=== PATIENT | female | born 2000 | race Caucasian/White ===

== ENCOUNTER 2021-03-12 19:53 | Emergency (ER) | payer OTHER ==
[~2021-03-12] VITALS: Ht 170 cm; Wt 51.0 kg
--- OUTSIDE RECORDS SUMMARY | 2021-03-12 20:00 | XMS REPORT | Clinical Summary ---
Author Author [facility] Organization [facility] Address Unknown Phone Unavailable Care Team Providers Care Scientific Director Name Role Phone PCP Unavailable Source Comments Some departments are not documenting in the electronic medical record. If you d o not see the information that you expected, contact Release of Information in [facility] [employer] Information Management department at [phone] for further assistan ce in locating additional records.[facility] Allergies Not on File Medications Not on file Active Problems Not on file Social History Date Tobacco Use Types Packs/Day Years Used Never Assessed Sex Assigned at Date Recorded Not on file Last Filed Vital Signs Not on file Plan of Treatment Health Maintenance Due Date Last Done Comments CHLAMYDIA SCREENING 18-24 2000 YEARS HPV VACCINES (1 - 2-dose 08/13/2011 series) HIV SCREENING 08/13/2015 DTAP/TDAP VACCINES (1 - 2018 Tdap) HEPATITIS C SCREENING 2018 PHYSICAL (COMPREHENSIVE) 2018 EXAM INFLUENZA VACCINE 10/01/2020 MENINGOCOCCAL VACCINE Aged Out No longer eligib le based on patient's age to (Daniel ALEMAN) complete this topic Results Not on filefrom Last 3 Months Advance Directives Patient Web Consultant Explanation Type Date Recorded Advance Directive/DPOA
--- NOTE | 2021-03-12 21:03 | ED Cardiac General ---
History of Present Illness General Chief Complaint: Cardiac/General Problems Stated Complaint: HEART PALPITATIONS X 2 WKS Nursing Triage Note: PT AMB TO ED BY POV WITH C/O HEART PALPITATIONS X 3 WKS. PT REPORTS THE TESTED POSITIVE FOR COVID-19 3 WEEKS AGO AND BEGAN HAVING HEART PALPITATIONS WELL INCREASED ANXIETY. PT ALSO BEGAN TAKING LEXAPRO FOR ANXIETY AND REPORTS THAT HAS INCREASED HER HEART PALPITAITONS. REPORTS SHE HAS SEEN HER PCP ABOUT THIS AND IS WAITING TO HAVE AN ECHO SCHEDULED. DENIES CP, SOB, GOODWIN. Source: patient, family Exam Limitations: no limitations History of Present Illness Date Seen by Provider: Mar 12, 2021 Time Seen by Provider: 20:34 Initial Comments This 20-year-old young lady presents to the emergency room with 2 to 3 weeks of palpitations. This started after testing positive for COVID-19. She is also started on Lexapro recently. She denies any excessive stimulant use. She does drink caffeine but denies any other stimulant use, drug use, or alcohol use. She denies as she has never been sexually active. She does not have any chest pain. Premature beats are noted on the monitor. She acknowledges feeling the premature beats witnessed on the monitor. She describes no tachycardia or sustained palpitations. She reports her PCP noted a murmur on auscultation recently. Allergies and Home Medications Allergies Coded Allergies: Penicillins (Verified Allergy, Unknown, 03/12/21) Patient Home Medication List Home Medication List Reviewed: Yes Review of Systems Review of Systems Constitutional: no symptoms reported EENTM: No Symptoms Reported Respiratory: No Symptoms Reported Cardiovascular: See HPI Gastrointestinal: No Symptoms Reported Genitourinary: No Symptoms Reported Musculoskeletal: no symptoms reported Skin: no symptoms reported Psychiatric/Neurological: See HPI Endocrine: No Symptoms Reported Hematologic/Lymphatic: No Symptoms Reported Past Djvbsfk-Ntjthp-Vjaerj Hx Patient Social History Tobacco Use?: No Use of E-Cig and/or Vaping dev: No Substance use?: No Alcohol Use?: No Pt feels they are or have been: No Immunizations Up To Date Influenza Vaccine Up-to-Date: Yes; Up-to-Date First/Initial COVID19 Vaccinat: AUGUST 2020 Second COVID19 Vaccination [place]: AUGUST 2020 Past Medical History Surgery/Hospitalization HX: TONSILECTOMY Surgeries: Yes Tonsillectomy Respiratory: No Cardiac: No Neurological: No : No Last Menstrual Period: Mar 05, 2021 Reproductive Disorders: No Genitourinary: No Gastrointestinal: No Musculoskeletal: No Endocrine: No HEENT: No Cancer: No Psychosocial: Yes Anxiety, Depression Physical Exam Vital Signs Vital Signs - First Documented 03/12/21 20:34 Temp 36.5 Pulse 82 Resp 16 B/P (MAP) 143/92 (109) Pulse Ox 100 O2 Delivery Room Air Capillary Refill : Less Than 3 Seconds Height, Weight, BMI Height: '" Weight: lbs. oz. kg; 17.00 BMI Method: General Appearance: No Apparent Distress, WD/WN HEENT: PERRL/EOMI, Normal ENT Inspection Neck: Normal Inspection Respiratory: Lungs Clear, Normal Breath Sounds, No Accessory Muscle Use Cardiovascular: No Edema, No Murmur, Other (occasional premature beats) Gastrointestinal: Normal Bowel Sounds, Non Tender, Soft Extremity: Normal Inspection, No Pedal Edema Neurologic/Psychiatric: Alert, Oriented x3, No Motor/Sensory Deficits, Normal Mood/Affect Skin: Normal Color, Warm/Dry Progress/Results/Core Measures Results/Orders Lab Results Laboratory Tests Test 03/12/21 21:14 Range/Units White Blood Count 3.5 L 4.3-11.0 10^3/uL Red Blood Count 4.03 3.80-5.11 10^6/uL Hemoglobin 11.7 11.5-16.0 g/dL Hematocrit 35 35-52 % Mean Corpuscular Volume 88 80-99 fL Mean Corpuscular Hemoglobin 29 25-34 pg Mean Corpuscular Hemoglobin Concent 33 32-36 g/dL Red Cell Distribution Width 12.0 10.0-14.5 % Platelet Count 165 130-400 10^3/uL Mean Platelet Volume 9.7 9.0-12.2 fL Immature Granulocyte % (Auto) 0 % Neutrophils (%) (Auto) 48 42-75 % Lymphocytes (%) (Auto) 41 12-44 % Monocytes (%) (Auto) 8 0-12 % Eosinophils (%) (Auto) 2 0-10 % Basophils (%) (Auto) 1 0-10 % Neutrophils # (Auto) 1.7 L 1.8-7.8 10^3/uL Lymphocytes # (Auto) 1.5 1.0-4.0 10^3/uL Monocytes # (Auto) 0.3 0.0-1.0 10^3/uL Eosinophils # (Auto) 0.1 0.0-0.3 10^3/uL Basophils # (Auto) 0.0 0.0-0.1 10^3/uL Immature Granulocyte # (Auto) 0.0 0.0-0.1 10^3/uL Sodium Level 141 135-145 MMOL/L Potassium Level 3.7 3.6-5.0 MMOL/L Chloride Level 106 98-107 MMOL/L Carbon Dioxide Level 24 21-32 MMOL/L Anion Gap 11 5-14 MMOL/L Blood Urea Nitrogen 16 7-18 MG/DL Creatinine 0.82 0.60-1.30 MG/DL Estimat Glomerular Filtration Rate 89 BUN/Creatinine Ratio 20 Glucose Level 90 70-105 MG/DL Calcium Level 9.4 8.5-10.1 MG/DL Corrected Calcium 9.0 8.5-10.1 MG/DL Magnesium Level 2.0 1.6-2.4 MG/DL Total Bilirubin 0.2 0.1-1.0 MG/DL Aspartate Amino Transf (AST/SGOT) 27 5-34 U/L Alanine Aminotransferase (ALT/SGPT) 27 0-55 U/L Alkaline Phosphatase 73 40-136 U/L Total Protein 7.0 6.4-8.2 GM/DL Albumin 4.5 3.2-4.5 GM/DL Serum Test, Qualitative NEGATIVE NEGATIVE My Orders Orders - MIESHA DAVIDSON MD Cbc With Automated Diff (03/12/21 20:34) Magnesium (03/12/21 20:34) Chest 1 View, Ap/Pa Only (03/12/21 20:34) Ekg Tracing (03/12/21 20:34) Comprehensive Metabolic Panel (03/12/21 20:34) O2 (03/12/21 20:34) Monitor-Rhythm Ecg Trace Only (03/12/21 20:34) Ed Iv/Invasive Line Start (03/12/21 20:34) Hcg,Qualitative Serum (03/12/21 20:34) Vital Signs/I&O 03/12/21 03/12/21 20:34 21:55 Temp 36.5 Pulse 82 77 Resp 16 15 B/P (MAP) 143/92 (109) 118/73 Pulse Ox 100 100 O2 Delivery Room Air Room Air Blood Pressure Mean: 109 Progress Progress Note : Progress Note Patient was exhibiting PACs and/or PVCs. There was prolonged QTC which may be related to her recent Lexapro. She was advised to stop Lexapro and discuss alternatives with her primary care provider. See discharge instructions for further discussion. Initial ECG Impression Date: Mar 12, 2021 Initial ECG Impression Time: 20:39 Initial ECG Rate: 87 Comment Sinus rhythm with PAC/PVC noted. No axis deviation. Prolonged QT intervals with QTC of 655. Diagnostic Imaging Diagonstic Imaging: Xray Plain Films/CT/US/NM/MRI: chest Comments NAME: KAILYN BASURTO MED REC#: [id number] PT STATUS: REG ER : 2000 PHYSICIAN: MIESHA DAVIDSON MD ADMIT DATE: 03/12/21/ER Signed Date of Exam:03/12/21 CHEST 1 VIEW, AP/PA ONLY Indication: Heart palpitations. COMPARISON: None. FINDINGS: Single view the chest demonstrates clear lungs bilaterally. The heart is normal. There is no pneumothorax. Osseous structures are normal. IMPRESSION: Negative chest Dictated by: Dictated on workstation # [id number] Dict: 03/12/212141 Trans: 03/12/212142 [facility] [id number] Interpreted by: DAYDAY BRYAN Electronically signed by: DAYDAY BRYAN 03/12/212142 Departure Impression Primary Impression: Palpitations Additional Impression: Prolonged QT interval Disposition: HOME, SELF-CARE Condition: Improved Departure-Patient Inst. Decision time for Depature: 21:00 Referrals: SHASTA PROCTOR DO (PCP/Family) Primary Care Physician Patient Instructions: Palpitations, Ventricular Premature Beats Add. Discharge Instructions: Your palpitations are likely caused by premature ventricular contractions (PVCs) or premature atrial contractions (PACs). These premature beats are not harmful themselves. You can often reduce the frequency of premature contractions by limiting stimulants such as caffeine, decongestant medicines, medications for ADD/ADHD, diet supplements, workout supplements, energy drinks, etc. Other triggers may include recent illness such as your recent COVID-19 infection, medications, etc. Please discuss this with your primary care provider. In addition, you have a prolonged QT interval on your EKG. You should stop Lexapro at as it is known to cause this problem. Notify your primary care provider and discuss further by phone tomorrow. You should have an EKG repeated within the next few days. Drink plenty of clear liquids to stay well-hydrated. Follow-up with your primary care provider within the next 1 to 2 weeks. Further work-up may be desired such as a potline monitor. Call with questions or concerns. Return to the ER if you have worsening symptoms. All discharge instructions reviewed with patient and/or family. Voiced understanding. Copy Copies To 1: SHASTA PROCTOR JOSHUA T MD Mar 12, 2021 21:02
[2021-03-12 21:21] LABS: BASOPHILS % (AUTO) 1 % (0-10); EOSINOPHILS # (AUTO) 0.1 10^3/uL (0.0-0.3); EOSINOPHILS % (AUTO) 2 % (0-10); HEMATOCRIT 35 % (35-52); HEMOGLOBIN 11.7 g/dL (11.5-16.0); LYMPHOCYTES # (AUTO) 1.5 10^3/uL (1.0-4.0); LYMPHOCYTES % (AUTO) 41 % (12-44); MEAN CORPUSCULAR HEMOGLOBIN 29 pg (25-34); MEAN CORPUSCULAR HGB CONC 33 g/dL (32-36); MEAN CORPUSCULAR VOLUME 88 fL (80-99); MEAN PLATELET VOLUME 9.7 fL (9.0-12.2); MONOCYTES # (AUTO) 0.3 10^3/uL (0.0-1.0); MONOCYTES % (AUTO) 8 % (0-12); NEUTROPHILS # (AUTO) 1.7 10^3/uL (1.8-7.8); NEUTROPHILS % (AUTO) 48 % (42-75); PLATELET COUNT 165 10^3/uL (130-400); WHITE BLOOD COUNT 3.5 10^3/uL (4.3-11.0)
[2021-03-12 21:30] LABS: ALBUMIN 4.5 GM/DL (3.2-4.5); POTASSIUM 3.7 MMOL/L (3.6-5.0)
[2021-03-12 21:31] LABS: CALCIUM 9.4 MG/DL (8.5-10.1)
[2021-03-12 21:34] LABS: BILIRUBIN,TOTAL 0.2 MG/DL (0.1-1.0)
[2021-03-12 21:36] LABS: CREATININE SERUM 0.82 MG/DL (0.60-1.30)
--- NOTE | 2021-03-12 21:44 | Diagnostic Imaging Report ---
Indication: Heart palpitations. COMPARISON: None. FINDINGS: Single view the chest demonstrates clear lungs bilaterally. The heart is normal. There is no pneumothorax. Osseous structures are normal. IMPRESSION: Negative chest Dictated by: Dictated on workstation # [id number]
[2021-03-12 21:55] VITALS: BP 118/73
== END 2021-03-12 21:56 | disposition home or self-care (01) ==
LOC: ER 19:57
DX: R00.2 Palpitations (principal); R94.31 Abnormal electrocardiogram [ECG] [EKG]; F41.9 Anxiety disorder, unspecified; F32.9 Major depressive disorder, single episode, unspecified; Z79.899 Other long term (current) drug therapy
CPT/HCPCS: 36415; 71045; 80053; 83735; 84703; 85025; 93005; 93041

== ENCOUNTER → 2021-04-20 | Outpatient (CLI) | payer OTHER | LOC: CARD 13:21 | PROVIDERS: ATTEND Internal Medicine Cardiovascular Disease | DX: I10 Essential (primary) hypertension (principal); I25.10 Atherosclerotic heart disease of native coronary artery without angina pectoris | CPT/HCPCS: 93306 ==

== ENCOUNTER → 2021-06-04 | Outpatient (CLI) | payer OTHER ==
[2021-06-04 11:09] VITALS: BP 126/76
--- NOTE | 2021-06-04 11:59 | Cardiology Stress Test Report ---
Stress Test Report Date of Procedure/Referring: Date of Procedure: Jun 04, 2021 PCP Nydia Couch MD Admitting Physician David Goodman DO Indications: HTN Baseline Heart Rate: 93 Baseline Blood Pressure: Blood Pressure Systolic: 126 Blood Pressure Diastolic: 76 Baseline EKG: Baseline EKG: NSR Summary/Conclusion: Summary: In summary, the patient started exercising with a baseline heart rate, blood pressure and EKG mentioned above Patient was able to exercise for a total of 10 minutes on Wilder protocol, METs 11.7 Maximum heart rate 181 Maximum blood pressure 153/73 Stress EKG, Minimal nondiagnostic changes Recovery EKG , Return to baseline Conclusion: 1. Good exercise tolerance for a total of 10 minutes on Wilder protocol, 11.7 METs, achieving 90 percent of maximum expected heart rate 2. Minimal nondiagnostic EKG changes with exercise returned to baseline during recovery 3. No arrhythmia was noted NYDIA COUCH MD Jun 04, 2021 11:59
== END ==
LOC: CARD 10:30
PROVIDERS: ATTEND Internal Medicine Cardiovascular Disease
DX: I10 Essential (primary) hypertension (principal); I25.10 Atherosclerotic heart disease of native coronary artery without angina pectoris; R07.9 Chest pain, unspecified; R00.2 Palpitations
CPT/HCPCS: 93017